=== PATIENT | female | born 2000 | race Caucasian/White ===

== ENCOUNTER 2019-04-10 21:25 | Inpatient (IN) | payer OTHER ==
[~2019-04-10] VITALS: Ht 154.9 cm; Wt 72.6 kg
[2019-04-11] MEDS ORDERED: PRENATAL TABLE1 EACH PO (14:30)
[2019-04-22] MEDS ORDERED: XOPENEX0.63 MG/3 IH (09:53)
[2019-04-22] MEDS ORDERED: Ferro-Plex CAPLET PO (09:53)
[2019-04-22] MEDS ORDERED: PREPLUS CA-FE1 EACH PO (09:53)
== END 2019-04-22 10:55 | disposition home or self-care (01) | DRG 831 ==
LOC: OBS/DEL 21:25 → LDR 04-11 08:58 → OB/GYN 04-11 08:58 → LDR 04-14 09:54 → OB/GYN 04-17 12:23
PROVIDERS: ADMIT Obstetrics & Gynecology
PROC: B246ZZZ Ultrasonography of Right and Left Heart (ICD-10-PCS; principal; 2019-04-14)
PROC: 3E0F7GC Introduction of Other Therapeutic Substance into Respiratory Tract, Via Natural or Artificial Opening (ICD-10-PCS; 2019-04-14)
PROC: 4A1HXCZ Monitoring of Products of Conception, Cardiac Rate, External Approach (ICD-10-PCS; 2019-04-14)
PROC: BY4FZZZ Ultrasonography of Third Trimester, Single Fetus (ICD-10-PCS; 2019-04-15)
PROC: 30233N1 Transfusion of Nonautologous Red Blood Cells into Peripheral Vein, Percutaneous Approach (ICD-10-PCS; 2019-04-15)
PROC: 4A033R1 Measurement of Arterial Saturation, Peripheral, Percutaneous Approach (ICD-10-PCS; 2019-04-15)
PROC: BB4BZZZ Ultrasonography of Pleura (ICD-10-PCS; 2019-04-21)
DX: O99.013 Anemia complicating pregnancy, third trimester (principal); J15.7 Pneumonia due to Mycoplasma pneumoniae; J90 Pleural effusion, not elsewhere classified; O99.513 Diseases of the respiratory system complicating pregnancy, third trimester; O26.843 Uterine size-date discrepancy, third trimester
CPT/HCPCS: 240

== ENCOUNTER 2019-04-27 16:36 | Inpatient (IN) | payer OTHER ==
[~2019-04-27] VITALS: Ht 154.9 cm; Wt 72.6 kg
[~2019-04-27 16:36] MED LIST: Ferro-Plex CAPLET PO; PRENATAL TABLE1 EACH PO; PREPLUS CA-FE1 EACH PO; XOPENEX0.63 MG/3 IH
== END 2019-04-30 15:23 | disposition home or self-care (01) | DRG 807 ==
LOC: LDR 16:36 → OB/GYN 04-28 13:26
PROVIDERS: ADMIT Obstetrics & Gynecology
PROC: 3E0P7VZ Introduction of Hormone into Female Reproductive, Via Natural or Artificial Opening (ICD-10-PCS; 2019-04-27)
PROC: 10907ZC Drainage of Amniotic Fluid, Therapeutic from Products of Conception, Via Natural or Artificial Opening (ICD-10-PCS; 2019-04-27)
PROC: 4A1HXCZ Monitoring of Products of Conception, Cardiac Rate, External Approach (ICD-10-PCS; 2019-04-27)
PROC: 10E0XZZ Delivery of Products of Conception, External Approach (ICD-10-PCS; principal; 2019-04-28)
PROC: 0UQGXZZ Repair Vagina, External Approach (ICD-10-PCS; 2019-04-28)
PROC: 3E033VJ Introduction of Other Hormone into Peripheral Vein, Percutaneous Approach (ICD-10-PCS; 2019-04-28)
DX: O71.4 Obstetric high vaginal laceration alone (principal); Z37.0 Single live birth; Z3A.38 38 weeks gestation of pregnancy

== ENCOUNTER 2023-03-14 06:58 | Emergency (ER) | payer OTHER ==
[~2023-03-14] VITALS: Ht 154.9 cm; Wt 63.0 kg
== END 2023-03-14 14:24 | disposition home or self-care (01) ==
LOC: ER 06:58
PROVIDERS: Emergency Medicine
DX: N39.0 Urinary tract infection, site not specified (principal); R10.2 Pelvic and perineal pain; Z88.8 Allergy status to other drugs, medicaments and biological substances; Z91.013 Allergy to seafood

== ENCOUNTER 2023-10-11 07:50 | Emergency (ER) | payer OTHER ==
[~2023-10-11] VITALS: Ht 154.9 cm; Wt 58.5 kg
[2023-10-11 10:35] LABS: CALCIUM 8.8 mg/dL (8.5-10.1); CREATININE SERUM 0.78 mg/dL (0.55-1.02); GFR 90.73; POTASSIUM 4.79 mEq/L (3.5-5.1)
[2023-10-11 10:54] LABS: HEMOGLOBIN 12.2 g/dL (12.0-15.00); MEAN CELL VOLUME 74.2 fL (80.00-100.00); MEAN CORPUSCULAR HEMOGLOBIN 24.6 pg (27.00-32.0); MEAN CORPUSCULAR HGB CONC 33.1 g/dl (32.0-36.0); PLATELET COUNT 282 K/uL (150-450); RED BLOOD COUNT 4.98 M/uL (4.00-6.00); RED CELL DISTRIBUTION WIDTH 15.8 % (11.5-14.5)
== END 2023-10-11 11:36 | disposition home or self-care (01) ==
LOC: ER 07:51
PROVIDERS: General Practice
DX: O20.9 Hemorrhage in early pregnancy, unspecified (principal); Z3A.01 Less than 8 weeks gestation of pregnancy; Z88.8 Allergy status to other drugs, medicaments and biological substances; Z91.013 Allergy to seafood